=== PATIENT | male | born 1995 | race Two or more races ===

== ENCOUNTER 2016-06-14 01:38 | Emergency (ER) | payer OTHER ==
[2016-06-14 02:54] LABS: Hematocrit 41 % (42-52); Hemoglobin 13.2 g/dl (14.0-18.0); Mean Corpuscular HGB Conc 32 g/dl (31-36); Mean Corpuscular Hemoglobin 25 pg (27-31); Mean Corpuscular Volume 78 fL (80-94); Mean Platelet Volume 8 um3 (7.4-10.4); Red Blood Count 5.25 10^6/ul (4.0-5.4); Red Cell Distribution Width 16 % (10.5-15); White Blood Count 10.7 10^3/ul (3.5-10.8)
[2016-06-14 02:55] LABS: Add Diff/Slide Review? Slide Review Added; Comments Flag Yes
[2016-06-14 03:02] LABS: Albumin 4.2 g/dL (3.2-5.2); BUN/Creatinine Ratio 15.8 (8-20); Calcium 9.2 mg/dL (8.6-10.3); EGFR African American 118.8 (>60); EGFR Non-African American 92.4 (>60); Globulin 2.9 g/dL (2-4); Potassium 3.7 mmol/L (3.5-5.0); Total Bilirubin 0.4 mg/dL (0.2-1.0); Total Protein 7.1 g/dL (6.4-8.9)
--- NOTE | 2016-06-14 03:22 | ED ---
Deven Infante Billy, scribed for Pete Ramirez MD on 06/14/16 at 0211 . Abdominal Pain/Male - HPI Summary HPI Summary: Patient is a 21 year-old male coming to [facility] presenting with sudden onset of LLQ pain starting at 0130 today. He states that he was woken from sleep with the pain. He reports nausea en route but denies any nausea or vomiting. The pain has resolved by this time in the ED; he is asymptomatic. States he had a normal dinner last night. He reports that he has had a "mild discomfort" in the same region for the last 2 days. - History of Current Complaint Chief Complaint: EDAbdPain Stated Complaint: LOWER ABD PAIN Time Seen by Provider: 06/14/16 02:05 Hx Obtained From: Patient Onset/Duration: Sudden Onset, Lasting Minutes, Resolved Timing: Constant Severity Initially: Moderate Severity Currently: None Location: Discrete At: LLQ Radiates: No Aggravating Factor(s): Nothing Alleviating Factor(s): Nothing Associated Signs And Symptoms: Positive: Nausea. Negative: Vomiting, Diarrhea - Allergies/Home Medications Allergies/Adverse Reactions: Allergies Allergy/AdvReac Type Severity Reaction Status Date / Time No Known Allergies Allergy Verified 06/14/16 01:44 PMH/Surg Hx/FS Hx/Imm Hx Endocrine/Hematology History: Reports: Hx Thyroid Disease - DX HYPERTHYROIDISM, GRAVES DISEASE, GOITER, BY DR PORTER 04/13 Respiratory History: Reports: Other Respiratory Problems/Disorders - DIFFICULTY BREATHING R/T GRAVES DISEASE Musculoskeletal History: Reports: Hx Orthopedic Injury - broken Left arm as child Sensory History: Reports: Hx Contacts or Glasses - GLASSES Denies: Hx Hearing Aid Opthamlomology History: Reports: Hx Contacts or Glasses - GLASSES - Surgical History Hx Anesthesia Reactions: No Infectious Disease History: No Infectious Disease History: Denies: Hx Clostridium Difficile, Hx Hepatitis, Hx Human Immunodeficiency Virus (HIV), Hx of Known/Suspected MRSA, Hx Shingles, Hx Tuberculosis, Hx Known/ Suspected VRE, Hx Known/Suspected VRSA, History Other Infectious Disease, Traveled Outside the [place] in Last 30 Days - Family History Known Family History: Positive: Other - Cousin with thyroid disease - Social History Alcohol Use: Weekly Alcohol Amount: 1 BEER/WEEK Substance Use Type: Reports: None Smoking Status (MU): Never Smoked Tobacco Have You Smoked in the Last Year: No Review of Systems Negative: Fever Positive: Abdominal Pain, Nausea. Negative: Vomiting, Diarrhea All Other Systems Reviewed And Are Negative: Yes Physical Exam Triage Information Reviewed: Yes Vital Signs On Initial Exam: Initial Vitals Temp Pulse Resp BP Pulse Ox 97.3 F 65 20 125/100 100 06/14/16 01:40 06/14/16 01:40 06/14/16 01:40 06/14/16 01:40 06/14/16 01:40 Vital Signs Reviewed: Yes Appearance: Positive: Well-Appearing, No Pain Distress Skin: Positive: Warm Eyes: Positive: KEITH ENT: Positive: Hearing grossly normal Neck: Positive: Supple Respiratory/Lung Sounds: Positive: Clear to Auscultation, Breath Sounds Present Cardiovascular: Positive: RRR Abdomen Description: Positive: Nontender, No Organomegaly, Soft Bowel Sounds: Positive: Present Musculoskeletal: Positive: Strength/ROM Intact Neurological: Positive: Sensory/Motor Intact, Alert, Oriented to Person Place, Time Diagnostics - Vital Signs Vital Signs Temp Pulse Resp BP Pulse Ox 06/14/16 01:40 97.3 F 65 20 125/100 100 - Laboratory Lab Results: Lab Results 06/14/16 06/14/16 Range/Units 02:38 02:38 WBC 10.7 (3.5-10.8) 10^3/ul RBC 5.25 (4.0-5.4) 10^6/ul Hgb 13.2 L (14.0-18.0) g/dl Hct 41 L (42-52) % MCV 78 L (80-94) fL MCH 25 L (27-31) pg MCHC 32 (31-36) g/dl RDW 16 H (10.5-15) % Plt Count 274 (150-450) 10^3/ul MPV 8 (7.4-10.4) um3 Neut % (Auto) 79.2 (38-83) % Lymph % (Auto) 10.2 L (25-47) % [place] % (Auto) 6.1 (1-9) % Eos % (Auto) 0.8 (0-6) % Baso % (Auto) 3.7 H (0-2) % Absolute Neuts (auto) 8.4 H (1.5-7.7) 10^3/ul Absolute Lymphs (auto) 1.1 (1.0-4.8) 10^3/ul Absolute Monos (auto) 0.6 (0-0.8) 10^3/ul Absolute Eos (auto) 0.1 (0-0.6) 10^3/ul Absolute Basos (auto) 0.4 H (0-0.2) 10^3/ul Absolute Nucleated RBC 0 10^3/ul Nucleated RBC % 0 Sodium 138 (133-145) mmol/L Potassium 3.7 (3.5-5.0) mmol/L Chloride 106 (101-111) mmol/L Carbon Dioxide 27 (22-32) mmol/L Anion Gap 5 (2-11) mmol/L BUN 16 (6-24) mg/dL Creatinine 1.01 (0.67-1.17) mg/dL Est GFR ( Amer) 118.8 (>60) Est GFR (Non-Af Amer) 92.4 (>60) BUN/Creatinine Ratio 15.8 (8-20) Glucose 103 H (70-100) mg/dL Calcium 9.2 (8.6-10.3) mg/dL Total Bilirubin 0.40 (0.2-1.0) mg/dL AST 16 (13-39) U/L ALT 14 (7-52) U/L Alkaline Phosphatase 124 H (34-104) U/L Total Protein 7.1 (6.4-8.9) g/dL Albumin 4.2 (3.2-5.2) g/dL Globulin 2.9 (2-4) g/dL Albumin/Globulin Ratio 1.4 (1-3) Result Diagrams: 06/14/16 02:38 06/14/16 02:38 Lab Statement: Any lab studies that have been ordered have been reviewed, and results considered in the medical decision making process. Re-Evaluation - Re-Evaluation First Eval Change: Improved Abdominal Pain Fem Course/Dx - Diagnoses Provider Diagnoses: Abdominal pain Discharge - Discharge Plan Condition: Stable Disposition: HOME Patient Education Materials: Abdominal Pain (ED) Referrals: Wilber Porter MD [Primary Care Provider] - The documentation as recorded by the Deven kenney Billy accurately reflects the service I personally performed and the decisions made by , Pete Ramirez MD.
[2016-06-14 03:49] VITALS: BP 162/115
== END 2016-06-14 03:58 | disposition home or self-care (01) ==
LOC: ED 01:38
DX: R10.32 Left lower quadrant pain (principal); E05.00 Thyrotoxicosis with diffuse goiter without thyrotoxic crisis or storm
CPT/HCPCS: 36415; 80053; 85025; 99283

== ENCOUNTER 2016-06-14 13:43 | Emergency (ER) | payer OTHER ==
[2016-06-14] MEDS ORDERED: Ondansetron INJ* 2 MG/ML VIAL IV ONE (14:10)
[2016-06-14] MEDS ORDERED: Morphine INJ* 4 MG/ML 1 ML CARPUJECT IV ONE (14:10)
[2016-06-14] MEDS ORDERED: NS 0.9% 1000 ML* 1,000 ML IV ONE (14:10)
--- NOTE | 2016-06-14 14:18 | ED ---
Abdominal Pain/Male - HPI Summary HPI Summary: Patient presents with extreme LLQ pain that awoke him at approximately 0100 this AM. He came to the ED for evaluation and was discharged home after negative labs. He presents this afternoon with continued pain that has intensified. He denies known trauma, drug or food exposure. He ate normally yesterday, but did have notice mild discomfort in the LLQ a few days prior to presentation. He denies previous episodes of pain like this. He has been vomiting "a lot", without diarrhea or constipation. He denies fever, SOB or CP. His pain does not radiate into his groin, testicle or back. - History of Current Complaint Chief Complaint: EDAbdPain Stated Complaint: ABD PAIN Time Seen by Provider: 06/14/16 13:44 Hx Obtained From: Patient Onset/Duration: Sudden Onset - 0100, Lasting Hours, Worse Since - this morning Timing: Constant Severity Initially: Severe Severity Currently: Severe Pain Intensity: 8 Location: Discrete At: LLQ Radiates: No Character: Sharp Aggravating Factor(s): Other: - touch Alleviating Factor(s): Nothing Associated Signs And Symptoms: Positive: Nausea, Vomiting - Allergies/Home Medications Allergies/Adverse Reactions: Allergies Allergy/AdvReac Type Severity Reaction Status Date / Time No Known Allergies Allergy Verified 06/14/16 01:44 PMH/Surg Hx/FS Hx/Imm Hx Endocrine/Hematology History: Reports: Hx Thyroid Disease - DX HYPERTHYROIDISM, GRAVES DISEASE, GOITER, BY DR NOE 04/13 Respiratory History: Reports: Other Respiratory Problems/Disorders - DIFFICULTY BREATHING R/T GRAVES DISEASE Musculoskeletal History: Reports: Hx Orthopedic Injury - broken Left arm as child Sensory History: Reports: Hx Contacts or Glasses - GLASSES Denies: Hx Hearing Aid Opthamlomology History: Reports: Hx Contacts or Glasses - GLASSES - Surgical History Hx Anesthesia Reactions: No Infectious Disease History: No Infectious Disease History: Denies: Hx Clostridium Difficile, Hx Hepatitis, Hx Human Immunodeficiency Virus (HIV), Hx of Known/Suspected MRSA, Hx Shingles, Hx Tuberculosis, Hx Known/ Suspected VRE, Hx Known/Suspected VRSA, History Other Infectious Disease, Traveled Outside the [place] in Last 30 Days - Family History Known Family History: Positive: None - Social History Occupation: Student Lives: Alone Alcohol Use: Weekly Alcohol Amount: 1 BEER/WEEK Substance Use Type: Reports: None Smoking Status (MU): Never Smoked Tobacco Have You Smoked in the Last Year: No Review of Systems Negative: Fever, Chills Negative: Chest Pain Negative: Shortness Of Breath, Cough Positive: Abdominal Pain, Vomiting, Nausea. Negative: Diarrhea Negative: Headache All Other Systems Reviewed And Are Negative: Yes Physical Exam - Summary Physical Exam Summary: Patient is in obvious pain and distress on exam. He is guarded and asks me to "do whatever I need to do" as I exam him. He is diaphoretic and appears ill. Triage Information Reviewed: Yes Vital Signs On Initial Exam: Initial Vitals Temp Pulse Resp BP Pulse Ox 98.7 F 67 22 159/100 100 06/14/16 13:55 06/14/16 13:55 06/14/16 13:55 06/14/16 13:55 06/14/16 13:55 Vital Signs Reviewed: Yes Appearance: Positive: Well-Nourished, Ill-Appearing, Pain Distress Skin: Positive: Warm, Skin Color Reflects Adequate Perfusion, Dry, Soft Head/Face: Positive: Normal Head/Face Inspection Eyes: Positive: EOMI, KEITH, Conjunctiva Clear ENT: Positive: Hearing grossly normal Respiratory/Lung Sounds: Positive: Clear to Auscultation, Breath Sounds Present Cardiovascular: Positive: RRR Abdomen Description: Positive: Soft - abdomen is not rigid but he is guarding which limits exam, Guarding. Negative: Nontender - patient extremely tender to palpation LUQ and LLQ, minimally tender RUQ and RLQ, CVA Tenderness (R), CVA Tenderness (L), Distended, Pulsatile Mass Bowel Sounds: Positive: Hypoactive Musculoskeletal: Positive: Strength/ROM Intact. Negative: Edema Left, Edema Right Neurological: Positive: Sensory/Motor Intact, Alert, Oriented to Person Place, Time, NV Bundle Intact Distally Psychiatric: Positive: Affect/Mood Appropriate AVPU Assessment: Alert Diagnostics - Vital Signs Vital Signs Temp Pulse Resp BP Pulse Ox 06/14/16 13:55 98.7 F 67 22 159/100 100 - Laboratory Result Diagrams: 06/14/16 14:20 06/14/16 14:20 Lab Statement: Any lab studies that have been ordered have been reviewed, and results considered in the medical decision making process. Re-Evaluation - Re-Evaluation First Eval Re-Evaluation Time: 15:10 Change: Improved Comment: pain has decreased but is still present. Abdominal Pain Fem Course/Dx - Diagnoses Differential Diagnosis/HQI/PQRI: Abdominal Aortic Aneurysm, Appendicitis, Bowel Obstruction, Gall Bladder Disease, Pancreatitis, Peptic Ulcer Disease, Renal Colic, Ureteral Stone Provider Diagnoses: Kidney stone on left side - Provider Notifications Discussed Care Of Patient With: Patient care handed off to Sana Jean PA-C. Time Discussed With Above Provider: 16:30 Discharge - Discharge Plan Condition: Good Disposition: HOME Prescriptions: Ondansetron ODT TAB* [Zofran Odt TAB*] 4 mg PO Q6H PRN #16 tab.odt PRN Reason: Nausea Tamsulosin CAP* [Flomax CAP*] 0.4 mg PO DAILY #12 cap oxyCODONE/Acetamin 5/325 MG* [Percocet 5/325 TAB*] 1 tab PO Q6H PRN #16 tab MDD 4 PRN Reason: Pain Patient Education Materials: Oxycodone/Acetaminophen (By mouth), Kidney Stones (ED) Referrals: Wilber Noe MD [Primary Care Provider] - Raheem Ramirez MD [Medical Doctor] - Additional Instructions: Take ibuprofen every 6 hours and narcotic as needed every 6 hours Inc fiber intake with narcotic Take Zofran every 6 hours for nausea as needed Take Flomax daily starting tomorrow, first dose given in ED until stone expelled , make sure stand up slowly Follow up with urology Return to ED if unable to manage pain at home, develop fever, or any new or worsening symptoms
[2016-06-14 14:41] LABS: Hematocrit 45 % (42-52); Hemoglobin 14.6 g/dl (14.0-18.0); Mean Corpuscular HGB Conc 32 g/dl (31-36); Mean Corpuscular Hemoglobin 25 pg (27-31); Mean Corpuscular Volume 78 fL (80-94); Mean Platelet Volume 8 um3 (7.4-10.4); Red Blood Count 5.82 10^6/ul (4.0-5.4); Red Cell Distribution Width 16 % (10.5-15); White Blood Count 12.7 10^3/ul (3.5-10.8)
[2016-06-14 14:57] LABS: Albumin 5.1 g/dL (3.2-5.2); BUN/Creatinine Ratio 11.9 (8-20); C Reactive Protein 1.76 mg/L (< 5.00); Calcium 10.1 mg/dL (8.6-10.3); EGFR African American 118.8 (>60); EGFR Non-African American 92.4 (>60); Globulin 3.4 g/dL (2-4); Potassium 3.6 mmol/L (3.5-5.0); Total Bilirubin 0.8 mg/dL (0.2-1.0); Total Protein 8.5 g/dL (6.4-8.9)
[2016-06-14] MEDS: NS 0.9% 1000 ML* 2,000 ML IV ONE ×2 (15:10→15:55)
[2016-06-14 15:32] LABS: Urine Bacteria Absent (Absent); Urine Bilirubin Negative (Negative); Urine Glucose Negative (Negative); Urine Nitrite Negative (Negative)
[2016-06-14] MEDS ORDERED: Iohexol 300* (CONTRAST) 10 ML SDV IV ONE (17:14)
--- NOTE | 2016-06-14 17:46 | RAD ---
INDICATION: Left lower quadrant abdominal pain COMPARISON: None TECHNIQUE: Axial source images were obtained from the hemidiaphragms to the symphysis pubis following administration of oral and intravenous contrast. 115 mL Omnipaque 300 was utilized. Coronal and sagittal reconstructed images were acquired. Lung bases: The lung bases are clear. Liver: The liver is normal in size. There are no masses. There is no ductal dilatation. Gallbladder: There are no calcified gallstones. There is no evidence of wall thickening or pericholecystic fluid. Spleen: The spleen is normal in size. There are no masses. Pancreas: There is no focal pancreatic mass or ductal dilatation. Adrenal glands: There is no evidence of adrenal mass. Kidneys: The right kidney is unremarkable with prompt perfusion and excretion. There is no mass. There is mild left-sided hydronephrosis and proximal hydroureter with a 5 to 6 mm calculus in the mid ureter. There is no renal parenchymal mass. There are no other calcifications of urinary significance. Adenopathy: There is no evidence of adenopathy by size criteria. Fluid collections: There are no free or localized fluid collections. Vessels:There are no significant atherosclerotic changes involving the aorta. There is no focal aneurysm. The iliac vessels are normal in caliber. The IVC appears normal. GI tract: There are no acute CT bowel findings. There is no obstruction. The stomach and small bowel appear normal. The lower GI tract is normal. The cecum, ileocecal valve, and terminal ileum appear normal. The appendix is visualized and appear normal. Pelvic organs: The prostate and seminal vesicles appear normal Bladder: There are no bladder masses. Abdominal and pelvic soft tissues: The extraperitoneal abdominal and pelvic soft tissues appear normal.. Osseous structures: There are no acute osseous findings. IMPRESSION: Mild left-sided hydronephrosis and proximal hydroureter related to a 5 to 6 mm midureteral calculus
--- NOTE | 2016-06-14 18:06 | PN ---
Progress Note - Progress Note Note: 21M presents w/ LLQ pain starting today. Signed out by Gurpreet Nathan pending CT. CT: IMPRESSION: Mild left-sided hydronephrosis and proximal hydroureter related to a 5 to 6 mm midureteral calculus Patient currently resting comfortable. able to urinate without difficulty. kidney function normal. only mild hydronephrosis. no sign of infection. discussed with dr montalvo due to patients pain being well controlled at moment with d/c home without calling urology. told patient at this size could have surgery to have it removed but patient will like to do outpatient treatment first. Told patient always welcome to return if pain not controlled with pain medication will d/c with. Gave contact information with urology to follow up with. will d/c with pain medication, zofran, and flomax. patient understands and agrees with plan. Diagnosis: left sided kidney stone Condition: good Disposition: home
[2016-06-14] MEDS ORDERED: Tamsulosin CAP* 0.4 MG PO ONE (18:08)
[2016-06-14] MEDS ORDERED: Ketorolac INJ* 30 MG/ML 1 ML VIAL IV PUSH ONE (18:08)
[2016-06-14 18:36] VITALS: BP 139/90
== END 2016-06-14 18:34 | disposition home or self-care (01) ==
LOC: ED 13:43
DX: R10.32 Left lower quadrant pain (principal); N13.30 Unspecified hydronephrosis; R11.2 Nausea with vomiting, unspecified
CPT/HCPCS: 36415; 74177; 80053; 81003; 81015; 85025; 86140; 96374; 96375; 99284; J1885; J2270; J2405